=== PATIENT | male | born 1945 | race Caucasian/White ===

== ENCOUNTER 2017-12-13 07:48 | Inpatient (IN) | payer OTHER ==
[~2017-12-13] VITALS: Ht 160 cm; Wt 63.0 kg
[2017-12-13] MEDS ORDERED: FORTAMET1000 MG (08:02)
[2017-12-13] MEDS ORDERED: GLIMEPIRIDE4 MG (08:02)
[2017-12-13] MEDS ORDERED: PRAVASTATIN SOD40 MG (08:02)
[2017-12-13] MEDS ORDERED: LISINOPRIL5 MG (08:02)
[2017-12-13] MEDS ORDERED: HYDROCHLOROTHIA25 MG (08:02)
[2017-12-13] MEDS ORDERED: VERAPAMIL ER180 MG (08:03)
[2017-12-18] MEDS ORDERED: TAMS0.4C PO (15:02)
[2017-12-18] MEDS ORDERED: PERCOCET 5-3251 EACH PO (15:02)
== END 2017-12-18 16:31 | disposition home or self-care (01) | DRG 330 ==
LOC: ER 07:48 → SEC-K 12:23 → SURG 12:23
PROVIDERS: Surgery
PROC: 0DBK8ZX Excision of Ascending Colon, Via Natural or Artificial Opening Endoscopic, Diagnostic (ICD-10-PCS; 2017-12-14)
PROC: 3E0H8KZ Introduction of Other Diagnostic Substance into Lower GI, Via Natural or Artificial Opening Endoscopic (ICD-10-PCS; 2017-12-14)
PROC: BW21Y0Z Computerized Tomography (CT Scan) of Abdomen and Pelvis using Other Contrast, Unenhanced and Enhanced (ICD-10-PCS; 2017-12-14)
PROC: 07TC4ZZ Resection of Pelvis Lymphatic, Percutaneous Endoscopic Approach (ICD-10-PCS; 2017-12-15)
PROC: 0DTN4ZZ Resection of Sigmoid Colon, Percutaneous Endoscopic Approach (ICD-10-PCS; principal; 2017-12-15 12:30)
DX: C19 Malignant neoplasm of rectosigmoid junction (principal); K62.5 Hemorrhage of anus and rectum; D12.2 Benign neoplasm of ascending colon; K59.09 Other constipation; R63.0 Anorexia; K62.89 Other specified diseases of anus and rectum; I11.9 Hypertensive heart disease without heart failure; I25.10 Atherosclerotic heart disease of native coronary artery without angina pectoris; E11.9 Type 2 diabetes mellitus without complications; Z79.4 Long term (current) use of insulin; I45.19 Other right bundle-branch block

== ENCOUNTER 2018-01-29 07:07 | Day surgery (SDC) | payer OTHER ==
[~2018-01-29 07:07] MED LIST: FORTAMET1000 MG; GLIMEPIRIDE4 MG; HYDROCHLOROTHIA25 MG; LISINOPRIL5 MG; PERCOCET 5-3251 EACH PO; PRAVASTATIN SOD40 MG; TAMS0.4C PO; VERAPAMIL ER180 MG
[2018-01-29] MEDS ORDERED: PERCOCET 5-3251 EACH PO (08:44)
== END 2018-01-29 13:30 | disposition home or self-care (01) ==
LOC: CIR.AMB 07:07
DX: C20 Malignant neoplasm of rectum (principal)
CPT/HCPCS: 36561; C1751

== ENCOUNTER 2018-12-27 06:20 | Day surgery (SDC) | payer OTHER | END 2018-12-27 10:55 | disposition home or self-care (01) | LOC: AMB-ENDOS 06:20 → CIR.AMB 12:00 → AMB-ENDOS 12:00 | DX: C20 Malignant neoplasm of rectum (principal) ==

== ENCOUNTER → 2020-04-16 07:00 | Outpatient (CLI) | payer OTHER | END | disposition home or self-care (01) | LOC: LAB 07:00 → ADM 12:00 → EDSTATUS 04-23 12:00 → AMB-ENDOS 04-23 12:00 | PROVIDERS: ATTEND Surgery | DX: Z20.828 Contact with and (suspected) exposure to other viral communicable diseases (principal); R59.0 Localized enlarged lymph nodes; K92.1 Melena; C7A.026 Malignant carcinoid tumor of the rectum; Z01.812 Encounter for preprocedural laboratory examination ==

== ENCOUNTER → 2020-08-31 08:00 | Outpatient (CLI) | payer OTHER | END | disposition home or self-care (01) | LOC: LAB 08:00 → ADM 09:15 → CIR.AMB 09-03 09:15 → EDSTATUS 09-07 09:15 | PROVIDERS: ATTEND Surgery | DX: C7A.026 Malignant carcinoid tumor of the rectum (principal); R59.0 Localized enlarged lymph nodes; Z20.822 Contact with and (suspected) exposure to COVID-19; K92.1 Melena; Z01.810 Encounter for preprocedural cardiovascular examination ==

== ENCOUNTER 2020-09-03 06:26 | Day surgery (SDC) | payer OTHER | END 2020-09-03 11:00 | disposition home or self-care (01) | LOC: AMB-ENDOS 06:26 | PROVIDERS: ATTEND Surgery | DX: D12.0 Benign neoplasm of cecum (principal); D12.4 Benign neoplasm of descending colon ==